=== PATIENT | female | born 1960 | race African-American/Black ===

== ENCOUNTER → 2017-10-16 | Outpatient (CLI) | payer OTHER ==
--- NOTE | 2017-10-16 14:19 | Diagnostic Imaging Report ---
CORRECTION Corrected on: 10/18/2017; Dictated by: Bernardino Magana M.D. on 10/18/2017 at 16:31 Electronically approved by: Bernardino Magana M.D. on 10/18/2017 at 16:31 PROCEDURE: Frontal and lateral views of the chest. COMPARISON: None. INDICATIONS: CHEST WALL PAIN FINDINGS: Lines/tubes: None. Lungs: The lungs are well inflated. There is an approximately 9.1 x 5.3 cm somewhat lobulated mass in the left upper lung. No calcifications are identified. There is no evidence of pneumonia or pulmonary edema. Pleura: There is no pleural effusion or pneumothorax. Heart and mediastinum: The heart and the mediastinum are normal. Bones: Associated lytic erosion/destruction of the posterolateral aspect of the left third, and fourth ribs, with possible involvement of the distal aspect of the left second and posterolateral fifth rib. Ill-defined erosion of the posterolateral left ninth rib. IMPRESSION: 1. 9 cm mass in the left upper lung with evidence of lytic destruction of the posterolateral aspect of the left third and fourth ribs. This may represent a pleural-based/chest wall or primary bone neoplasm. A primary bronchogenic malignancy with extension into the chest wall is also a consideration. Contrast-enhanced CT chest is recommended for further evaluation. 2. Erosion of the posterolateral left ninth rib, likely representing metastatic disease 3. Findings discussed with Dr. Cardenas October 16, 2017 1417 hrs. Bernardino Magana M.D. Dictated by: Bernardino Magana M.D. on 10/16/2017 at 14:27 Electronically approved by: Bernardino Magana M.D. on 10/16/2017 at 14:27
== END ==
LOC: RAD 12:39
PROVIDERS: ATTEND Family Medicine
DX: R07.89 Other chest pain (principal)
CPT/HCPCS: 71020

== ENCOUNTER → 2017-10-18 | Outpatient (CLI) | payer OTHER ==
[~2017-10-18] MED LIST: IOPAMIDOL 370 MG/ML 200 ML INFUS..BTL INJ ONE; SODIUM CHLORIDE 0.9% 50ML 50 ML ONE
--- NOTE | 2017-10-18 16:21 | Diagnostic Imaging Report ---
PROCEDURE: CT scan of the chest WITH intravenous contrast, using standard protocol. TECHNIQUE: The chest was scanned utilizing a multidetector helical scanner from the lung apex through the level of the adrenal glands after the IV administration of 100 cc of Isovue 370. Coronal and sagittal multiplanar reformations were obtained. COMPARISON: Patients [facility], , CHEST 2 VIEWS, 10/16/2017, 12:56. INDICATIONS: LUNG MASS FINDINGS: Lines/tubes: None. Lungs and Airways: Moderate paraseptal and mild to moderate centrilobular emphysematous changes, predominantly in the upper lobes. Heterogeneously enhancing, likely partially centrally necrotic mass is centered in the lateral left upper lobe and extending into the superior segment of the left lower lobe (series 2, image 30 and sagittal image 82), corresponding to the abnormality seen on recent chest x-ray. This mass invades the left chest wall, with lytic destruction of the posterolateral and lateral aspect of the left third and fourth ribs ( series 2, images 15, 21 and 27), and subtle involvement of the posterolateral fifth rib (series 2, image 36). Mild extension beyond the ribs into the left axillary region (series 2 image 30). No pulmonary nodules, other masses or consolidation. Airways are clear, without endobronchial lesions. Pleura: No effusion, or pneumothorax. Heart and mediastinum: The left thyroid lobe is likely absent or hypoplastic. Right thyroid lobe is unremarkable. Heart size is normal. No pericardial effusion. Aorta is non-aneurysmal. Main pulmonary artery is normal in caliber. Lymph nodes: Prominent, although subcentimeter, a left internal mammary lymph node (series 2, image 38). Borderline enlarged AP window node (series 2, image 37). No other adenopathy. Abdomen: Limited contrast-enhanced views of the upper abdomen show no abnormality within the visualized spleen, pancreas, or kidneys. 1.4, right and 1.1 and 1.5 cm left adrenal hypodense lesions (series 2 images 99, 101 and 103). Ill-defined hypodense area adjacent to the falciform ligament in hepatic segment IV (series 2 image 105) has somewhat wedge-shaped and likely represents focal fatty infiltration. Bones: 3.6 x 1.7 cm lytic lesion with soft tissue component involving the posterolateral left ninth rib (series 2, image 70). Other bony structures are intact. IMPRESSION: 1. Heterogeneously enhancing, likely partially necrotic mass centered in the lateral left upper lobe and extending into the superior segment of the left lower lobe, with evidence of chest wall invasion and lytic destruction of the left third, fourth, and likely fifth ribs. The given the presence of emphysematous and bullous changes, this likely represents bronchogenic neoplasm. A pleural-based or bony neoplasms are less likely considerations. 2. Lytic lesion in the posterolateral left ninth rib, consistent with metastasis. 3. Bilateral adrenal indeterminate hypodense lesions,, prominent left internal mammary lymph node and borderline enlarged AP window lymph node, worrisome for additional sites of metastases. Bernardino Magana M.D. Dictated by: Bernardino Magana M.D. on 10/18/2017 at 16:29 Electronically approved by: Bernardino Magana M.D. on 10/18/2017 at 16:29
== END ==
LOC: CT 14:03
PROVIDERS: ATTEND Family Medicine
DX: R91.8 Other nonspecific abnormal finding of lung field (principal)
CPT/HCPCS: 71260; Q9967

== ENCOUNTER → 2017-11-04 | Outpatient (CLI) | payer OTHER ==
[~2017-11-04] MED LIST changes: +FENTANYL CITRATE/PF 100MCG/2 ML INJ ONE; -IOPAMIDOL 370 MG/ML 200 ML INFUS..BTL INJ ONE; +MIDAZOLAM HCL 2 MG/2 ML VIAL ONE; +SODIUM CHLORIDE 0.9% 250ML 250 ML ONE; -SODIUM CHLORIDE 0.9% 50ML 50 ML ONE
[2017-11-04 11:08] LABS: INR 0.87; PROTHROMBIN TIME 12.3 seconds (11.9-14.5)
[2017-11-04 11:09] LABS: PARTIAL THROMBOPLASTIN TIME 33.2 seconds (23.8-35.5)
--- NOTE | 2017-11-04 14:55 | Diagnostic Imaging Report ---
PROCEDURE:CT GUIDED NEEDLE PLACEMENT COMPARISON:[facility], CT, CT CHEST W, 10/18/2017, 15:20. INDICATIONS:LEFT UPPER LOBE BIPOSY FINDINGS: Written and verbal consent were obtained. Patient was placed prone in the CT scanner. Preliminary CT images identified left upper lobe mass with rib destruction. A safe entry route was identified and the overlying skin was prepped and draped in usual sterile fashion. Lidocaine 1% was used for local pain control. Patient received 1 mg of Versed and 25 mcg of fentanyl during the procedure. She was continuously monitored. A 16 gauge guiding needle was placed into the left upper lobe mass. A total of 2 FNAs was accomplished with 18 gauge Chiba needles. A total of 4 core biopsies were performed utilizing an 18 gauge 2 cm throw biopsy gun. The pathologist deemed the specimens adequate for diagnosis. The patient tolerated the procedure well, and there were no immediate post-procedural complications. No pneumothorax was identified. Total dose: 921.23 mGy-cm CONCLUSION: Successful CT-guided FNA and core biopsies of a left upper lobe pulmonary mass. Dano Gonzales D.O. Dictated by: Dano Gonzales D.O. on 11/04/2017 at 15:04 Electronically approved by: Dano Gonzales D.O. on 11/04/2017 at 15:04
== END ==
LOC: CT 10:00
PROVIDERS: ATTEND Student in an Organized Health Care Education/Training Program
DX: R91.8 Other nonspecific abnormal finding of lung field (principal)
CPT/HCPCS: 32405; 36415; 77012; 85049; 85610; 85730; 88172; 88173; 88305; 88333; 88342; J2250; J7050